=== PATIENT | male | born 1985 | race Caucasian/White ===

== ENCOUNTER 2023-08-22 08:08 | Emergency (ER) | payer MEDICAID ==
[~2023-08-22] VITALS: Ht 185.4 cm; Wt 95.3 kg
[2023-08-22] MEDS ORDERED: IBUP-1955 PO (09:32)
[2023-08-22 09:56] VITALS: BP 141/81; TEMP 98.1; O2SAT 96
== END 2023-08-22 09:56 | disposition home or self-care (01) ==
LOC: ER 08:13
DX: S91.312A Laceration without foreign body, left foot, initial encounter (principal); W25.XXXA Contact with sharp glass, initial encounter; Y93.89 Activity, other specified; Y92.89 Other specified places as the place of occurrence of the external cause; Y99.8 Other external cause status
CPT/HCPCS: 73630-TC